=== PATIENT | female | born 1930 | race Caucasian/White ===

== ENCOUNTER 2018-11-15 12:56 | Emergency (ER) | payer MEDICARE ==
[~2018-11-15] VITALS: Ht 160 cm; Wt 104.3 kg
[~2018-11-15 12:56] MED LIST: ASCO1ER; ASPI325EC; ASPI500; ASPI81CH PO; ASPI81EC PO; ATOR10; BETA1; CALGLU500; CEPH500; CEPH500 PO; CHOL10002; CONEST.625; CYCL10 PO; FISH1000 PO; FLAX; FURO40; FURO40 PO; HYDACE5325 PO; HYDCOR1TO TOP; HYDMOR2 PO; Hydrocodone-Ap1 EA23 PO; INDO50 PO; LEVSOD125; LEVSOD25; LEVSOD88 PO; MARIJUANA OIL; MECL25 PO; METO50; METO50 PO; METPRE4DP PO; MULVITMINF; Norco 5-325 Ta1 EACH PO; OXAP600; POTA10T; PROACE100 PO; RXCEPH500 PO; RXHYD5325 PO; RXPROACE PO; Synthroid125 MCG; TOCO400; ULTRA-LIGHT RO1 EACH MC; VIT1CAPS12 PO; VITAMIN C 500500 MG PO; Vitamin C100 M1 PO; WARF10; WARF5 PO; Wheelchair1 EACH MC; XARELTO20 MG PO; [UNRECOGNIZED DRUG - REMARK]
[2018-11-15 14:01] LABS: BASOPHILS ABSOLUTE AUTO 0.05 K/mm3 (0.00-0.23); BASOPHILS PERCENT AUTO 1 % (0-2); EOSINOPHILS ABSOLUTE AUTO 0.22 K/mm3 (0.00-0.68); EOSINOPHILS PERCENT AUTO 3 % (0-6); Hematocrit 39.4 % (33.0-51.0); Hemoglobin 12.3 g/dL (11.5-16.0); IMMATURE GRAN ABSOLUTE AUTO 0.02 K/mm3 (0.00-0.10); IMMATURE GRAN PERCENT AUTO 0 % (0-1); LYMPHOCYTES ABSOLUTE AUTO 1.16 K/mm3 (0.84-5.20); LYMPHOCYTES PERCENT AUTO 17 % (21-46); MONOCYTES ABSOLUTE AUTO 0.85 K/mm3 (0.16-1.47); MONOCYTES PERCENT AUTO 12 % (4-13); Mean Corpuscular HGB Conc 31.2 g/dL (31.5-36.5); Mean Corpuscular Volume 86 fL (80-100); Mean Platelet Volume 10.2 fL (9.1-12.4); NEUTROPHILS ABSOLUTE AUTO 4.66 K/mm3 (1.96-9.15); NEUTROPHILS PERCENT AUTO 67 % (41-73); Platelet Count 161 K/mm3 (150-400); RDW Coefficient Variation 15.8 % (11.7-14.2); RDW Standard Deviation 49.3 fL (35.1-46.3); Red Blood Cell Count 4.56 M/mm3 (3.80-5.20); White Blood Cell Count 6.96 K/mm3 (4.00-11.30)
[2018-11-15 14:17] LABS: International Normalized Ratio 1.57
[2018-11-15 14:18] LABS: Albumin, Blood 3.5 g/dL (3.4-5.0); Albumin/Globulin Ratio 0.9 (0.8-1.8); Bilirubin, Total 0.7 mg/dL (0.1-1.0); Bun/Creatinine Ratio 15.5 (12.0-20.0); Creatinine, Blood 1.03 mg/dL (0.40-1.00); Globulin, Blood 3.7 g/dL (2.2-4.0); Potassium, Blood 4.5 mmol/L (3.5-5.5); Total Protein, Blood 7.2 g/dL (6.4-8.2)
[2018-11-15] MEDS ORDERED: METO50 PO (17:10)
[2018-11-15] MEDS ORDERED: ATOR10 PO (17:10)
[2018-11-15] MEDS ORDERED: FLAX PO (17:11)
[2018-11-15] MEDS ORDERED: LEVSOD125 PO (17:11)
[2018-11-15] MEDS ORDERED: FURO20 (17:12)
[2018-11-15] MEDS ORDERED: K-Dur20 MEQ PO (17:12)
[2018-11-15] MEDS ORDERED: Calcium + Vita1 EACH (17:12)
[2018-11-15] MEDS ORDERED: WARF1 (17:13)
[2018-11-15] MEDS ORDERED: VIT1CAPS12 PO (17:13)
== END 2018-11-15 21:12 | disposition home or self-care (01) ==
LOC: ER 12:56
PROVIDERS: Physician Assistant
DX: R04.2 Hemoptysis (principal); R79.1 Abnormal coagulation profile; I10 Essential (primary) hypertension; M79.89 Other specified soft tissue disorders; Z86.718 Personal history of other venous thrombosis and embolism; Z88.5 Allergy status to narcotic agent; Z88.7 Allergy status to serum and vaccine; Z79.899 Other long term (current) drug therapy; Z79.01 Long term (current) use of anticoagulants
CPT/HCPCS: 36415; 71046; 71260; 80053; 85025; 85379; 85610; 85730; 86850; 86900; 86901; 93005; 93010; 99284-25; Q9967

== ENCOUNTER 2019-05-05 20:09 | Emergency (ER) | payer OTHER ==
[~2019-05-05] VITALS: Ht 160 cm; Wt 81.7 kg
[~2019-05-05 20:09] MED LIST changes: +ATOR10 PO; +Calcium + Vita1 EACH; +FLAX PO; +FURO20; +K-Dur20 MEQ PO; +LEVSOD125 PO; +WARF1
[2019-05-05 20:33] LABS: Source, Urine Catheter
[2019-05-05 20:35] LABS: BASOPHILS ABSOLUTE AUTO 0.05 K/mm3 (0.00-0.23); BASOPHILS PERCENT AUTO 1 % (0-2); EOSINOPHILS ABSOLUTE AUTO 0.16 K/mm3 (0.00-0.68); EOSINOPHILS PERCENT AUTO 2 % (0-6); Hemoglobin 12.8 g/dL (11.5-16.0); IMMATURE GRAN ABSOLUTE AUTO 0.03 K/mm3 (0.00-0.10); IMMATURE GRAN PERCENT AUTO 0 % (0-1); LYMPHOCYTES ABSOLUTE AUTO 1.73 K/mm3 (0.84-5.20); LYMPHOCYTES PERCENT AUTO 18 % (21-46); MONOCYTES ABSOLUTE AUTO 1.29 K/mm3 (0.16-1.47); MONOCYTES PERCENT AUTO 14 % (4-13); Mean Corpuscular HGB 27.4 pg (26.0-34.0); Mean Corpuscular HGB Conc 31.2 g/dL (31.5-36.5); Mean Corpuscular Volume 88 fL (80-100); Mean Platelet Volume 10.3 fL (9.1-12.4); NEUTROPHILS ABSOLUTE AUTO 6.17 K/mm3 (1.96-9.15); NEUTROPHILS PERCENT AUTO 66 % (41-73); Platelet Count 197 K/mm3 (150-400); RDW Coefficient Variation 15.3 % (11.7-14.2); RDW Standard Deviation 49.1 fL (35.1-46.3); Red Blood Cell Count 4.68 M/mm3 (3.80-5.20); White Blood Cell Count 9.43 K/mm3 (4.00-11.30)
[2019-05-05 20:42] LABS: Appearance, Urine Clear (Clear); Bilirubin, Urine Neg (Neg); Blood, Urine 2+ (Neg); Color, Urine Yellow (P-Yellow); Glucose Qualitative, Urine Neg (Neg); Ketones, Urine Neg (Neg); Leukocyte Esterase, Urine Neg (Neg); Nitrite, Urine Neg (Neg); Protein, Urine Neg (Neg); Urobilinogen, Urine NORM (Normal)
[2019-05-05 20:43] LABS: Squamous Epithelial Cells Few /hpf (Few)
[2019-05-05 20:44] LABS: Bacteria Mod /hpf
[2019-05-05 20:57] LABS: Alanine Aminotransfer (ALT/SGP 24 U/L (12-78); Albumin, Blood 3.6 g/dL (3.4-5.0); Alk Phos 94 U/L (50-136); Anion Gap 7 mmol/L (6-16); Aspartate Aminotrans (AST/SGOT 20 U/L (12-37); Bilirubin, Total 0.6 mg/dL (0.1-1.0); Blood Urea Nitrogen 19 mg/dL (8-24); Bun/Creatinine Ratio 16.7 (12.0-20.0); CO2, Blood 28 mmol/L (21-32); CPK Creatine Kinase 27 U/L (26-193); Calcium, Blood 9.3 mg/dL (8.5-10.1); Chloride, Blood 104 mmol/L (98-108); Creatinine, Blood 1.14 mg/dL (0.40-1.00); Globulin, Blood 3.6 g/dL (2.2-4.0); Glomerular Filtration Rate 48 (60-); Glucose, Blood 138 mg/dL (70-99); Magnesium, Blood 1.9 mg/dL (1.6-2.4); Potassium, Blood 3.5 mmol/L (3.5-5.5); Sodium, Blood 139 mmol/L (136-145); Total Protein, Blood 7.2 g/dL (6.4-8.2)
[2019-05-05 21:03] LABS: Creatine Kinase MB <1.0 ng/mL (0.0-3.6); Creatine Kinase MB Index Unable to Calculate (0.0-4.0)
[2019-05-05] MEDS ORDERED: CEPH500 PO (23:31)
== END 2019-05-06 | disposition home or self-care (01) ==
LOC: ER 20:09
PROVIDERS: Emergency Medicine
DX: N39.0 Urinary tract infection, site not specified (principal); I10 Essential (primary) hypertension; Z88.5 Allergy status to narcotic agent; Z88.7 Allergy status to serum and vaccine; Z79.01 Long term (current) use of anticoagulants; Z79.899 Other long term (current) drug therapy; Z87.891 Personal history of nicotine dependence
CPT/HCPCS: 70450; 71045; 80053; 81001; 82550; 82553; 83735; 85025; 87086; 93005; 93010; 96360; 99285-25; A9270-GY; J7030; P9612

== ENCOUNTER 2020-02-17 16:54 | Emergency (ER) | payer OTHER ==
[~2020-02-17] VITALS: Ht 160 cm; Wt 102.1 kg
[~2020-02-17 16:54] MED LIST changes: -ATOR10 PO; +ATOR20 PO; -FURO20; +MELO7.5; +SERT50 PO; -WARF1
[2020-02-17 17:25] LABS: BASOPHILS ABSOLUTE AUTO 0.06 K/mm3 (0.00-0.23); BASOPHILS PERCENT AUTO 1 % (0-2); EOSINOPHILS ABSOLUTE AUTO 0.31 K/mm3 (0.00-0.68); EOSINOPHILS PERCENT AUTO 4 % (0-6); Hematocrit 32.8 % (33.0-51.0); Hemoglobin 9.5 g/dL (11.5-16.0); IMMATURE GRAN ABSOLUTE AUTO 0.02 K/mm3 (0.00-0.10); IMMATURE GRAN PERCENT AUTO 0 % (0-1); LYMPHOCYTES PERCENT AUTO 14 % (21-46); MONOCYTES ABSOLUTE AUTO 1.04 K/mm3 (0.16-1.47); MONOCYTES PERCENT AUTO 13 % (4-13); Mean Corpuscular HGB 20.7 pg (26.0-34.0); Mean Corpuscular Volume 72 fL (80-100); NEUTROPHILS ABSOLUTE AUTO 5.48 K/mm3 (1.96-9.15); NEUTROPHILS PERCENT AUTO 69 % (41-73); Platelet Count 227 K/mm3 (150-400); RDW Coefficient Variation 26.4 % (11.7-14.2); RDW Standard Deviation 66.4 fL (35.1-46.3); Red Blood Cell Count 4.59 M/mm3 (3.80-5.20); White Blood Cell Count 8.01 K/mm3 (4.00-11.30)
[2020-02-17 17:40] LABS: Prothrombin Time Results 20.6 Sec (9.7-11.5)
[2020-02-17 17:48] LABS: Albumin, Blood 3.4 g/dL (3.4-5.0); Albumin/Globulin Ratio 1.1 (0.8-1.8); Bilirubin, Total 0.6 mg/dL (0.1-1.0); Bun/Creatinine Ratio 14.2 (12.0-20.0); Calcium, Blood 9.2 mg/dL (8.5-10.1); Creatinine, Blood 1.48 mg/dL (0.40-1.00); Globulin, Blood 3.2 g/dL (2.2-4.0); Potassium, Blood 3.8 mmol/L (3.5-5.5); Total Protein, Blood 6.6 g/dL (6.4-8.2)
[2020-02-17] MEDS ORDERED: IFEREX (20:48)
[2020-02-17] MEDS ORDERED: DONE5 PO (20:49)
== END 2020-02-17 20:52 | disposition home or self-care (01) ==
LOC: ER 16:54
PROVIDERS: Physician Assistant
DX: S80.12XA Contusion of left lower leg, initial encounter (principal); S80.11XA Contusion of right lower leg, initial encounter; E03.9 Hypothyroidism, unspecified; I10 Essential (primary) hypertension; E78.5 Hyperlipidemia, unspecified; Z79.01 Long term (current) use of anticoagulants; Z88.5 Allergy status to narcotic agent; Z88.7 Allergy status to serum and vaccine; Z95.1 Presence of aortocoronary bypass graft; Z87.891 Personal history of nicotine dependence; Z79.899 Other long term (current) drug therapy; X58.XXXA Exposure to other specified factors, initial encounter
CPT/HCPCS: 36415; 80053; 85025; 85610; 93971; 99284-25

== ENCOUNTER 2020-05-14 10:57 | Emergency (ER) | payer OTHER ==
[~2020-05-14] VITALS: Ht 160 cm; Wt 95.2 kg
[~2020-05-14 10:57] MED LIST changes: +ATOR10 PO; -ATOR20 PO; -Calcium + Vita1 EACH; +Coumadin2 MG PO; +DONE5 PO; +EUTHYROX125 MCG PO; +IFEREX; -LEVSOD125 PO; +Vitamin D1000 UNI1 PO
[2020-05-14 11:32] LABS: BASOPHILS ABSOLUTE AUTO 0.05 K/mm3 (0.00-0.23); BASOPHILS PERCENT AUTO 1 % (0-2); EOSINOPHILS ABSOLUTE AUTO 0.35 K/mm3 (0.00-0.68); EOSINOPHILS PERCENT AUTO 5 % (0-6); Hematocrit 37.3 % (33.0-51.0); Hemoglobin 11.8 g/dL (11.5-16.0); IMMATURE GRAN ABSOLUTE AUTO 0.02 K/mm3 (0.00-0.10); IMMATURE GRAN PERCENT AUTO 0 % (0-1); LYMPHOCYTES PERCENT AUTO 12 % (21-46); MONOCYTES ABSOLUTE AUTO 0.81 K/mm3 (0.16-1.47); MONOCYTES PERCENT AUTO 11 % (4-13); Mean Corpuscular HGB 25.3 pg (26.0-34.0); Mean Corpuscular HGB Conc 31.6 g/dL (31.5-36.5); Mean Corpuscular Volume 80 fL (80-100); Mean Platelet Volume 9.9 fL (9.1-12.4); NEUTROPHILS PERCENT AUTO 71 % (41-73); Platelet Count 165 K/mm3 (150-400); RDW Coefficient Variation 17.1 % (11.7-14.2); RDW Standard Deviation 48.6 fL (35.1-46.3); Red Blood Cell Count 4.67 M/mm3 (3.80-5.20); White Blood Cell Count 7.43 K/mm3 (4.00-11.30)
[2020-05-14 11:50] LABS: Albumin, Blood 3.3 g/dL (3.4-5.0); Bilirubin, Total 0.8 mg/dL (0.1-1.0); Calcium, Blood 9.1 mg/dL (8.5-10.1); Creatinine, Blood 1.14 mg/dL (0.40-1.00); Globulin, Blood 3.3 g/dL (2.2-4.0); Total Protein, Blood 6.6 g/dL (6.4-8.2)
[2020-05-14 12:00] LABS: International Normalized Ratio 1.26; Prothrombin Time Results 13.3 Sec (9.7-11.5)
[2020-05-14] MEDS ORDERED: Aspir 8181 MG PO (13:17)
[2020-05-14] MEDS ORDERED: Potassium Chlo20 ME1 PO (13:21)
[2020-05-14] MEDS ORDERED: ALBU2.5V5 INH (13:28)
[2020-05-14] MEDS ORDERED: PENVK250 PO (13:29)
== END 2020-05-14 15:17 | disposition home or self-care (01) ==
LOC: ER 10:57
PROVIDERS: Physician Assistant
DX: J90 Pleural effusion, not elsewhere classified (principal); E03.9 Hypothyroidism, unspecified; I10 Essential (primary) hypertension; E78.5 Hyperlipidemia, unspecified; Z88.5 Allergy status to narcotic agent; Z88.7 Allergy status to serum and vaccine; Z79.899 Other long term (current) drug therapy; Z87.891 Personal history of nicotine dependence
CPT/HCPCS: 36415; 71046; 71250; 80053; 85025; 85610; 85730; 99284-25

== ENCOUNTER 2020-08-12 09:11 | Inpatient (IN) | payer OTHER, MEDICARE ==
[~2020-08-12] VITALS: Ht 162.6 cm; Wt 92.0 kg
[~2020-08-12 09:11] MED LIST changes: +ALBU2.5V5 INH; +Aspir 8181 MG PO; +PENVK250 PO; +Potassium Chlo20 ME1 PO
[2020-08-12 10:06] LABS: BASOPHILS ABSOLUTE AUTO 0.05 K/mm3 (0.00-0.23); BASOPHILS PERCENT AUTO 0 % (0-2); EOSINOPHILS PERCENT AUTO 0 % (0-6); Hemoglobin 12.9 g/dL (11.5-16.0); IMMATURE GRAN ABSOLUTE AUTO 0.07 K/mm3 (0.00-0.10); IMMATURE GRAN PERCENT AUTO 0 % (0-1); LYMPHOCYTES ABSOLUTE AUTO 0.27 K/mm3 (0.84-5.20); LYMPHOCYTES PERCENT AUTO 2 % (21-46); MONOCYTES ABSOLUTE AUTO 1.27 K/mm3 (0.16-1.47); MONOCYTES PERCENT AUTO 7 % (4-13); Mean Corpuscular HGB 26.5 pg (26.0-34.0); Mean Corpuscular HGB Conc 30.7 g/dL (31.5-36.5); Mean Corpuscular Volume 86 fL (80-100); Mean Platelet Volume 9.6 fL (9.1-12.4); NEUTROPHILS ABSOLUTE AUTO 15.79 K/mm3 (1.96-9.15); NEUTROPHILS PERCENT AUTO 91 % (41-73); NRBC ABSOLUTE 0.02 K/mm3 (0.00-0.02); NRBC Auto 0.1 /100 WBC (0.0-0.2); Platelet Count 241 K/mm3 (150-400); RDW Coefficient Variation 18.9 % (11.7-14.2); RDW Standard Deviation 59.1 fL (35.1-46.3); Red Blood Cell Count 4.87 M/mm3 (3.80-5.20); White Blood Cell Count 17.45 K/mm3 (4.00-11.30)
[2020-08-12 10:38] LABS: Prothrombin Time Results 42.2 Sec (9.7-11.5)
[2020-08-12 10:40] LABS: Alanine Aminotransfer (ALT/SGP 36 U/L (12-78); Albumin, Blood 3.1 g/dL (3.4-5.0); Albumin/Globulin Ratio 0.8 (0.8-1.8); Alk Phos 213 U/L (50-136); Anion Gap 4 mmol/L (6-16); Aspartate Aminotrans (AST/SGOT 35 U/L (12-37); Bilirubin, Total 1.4 mg/dL (0.1-1.0); Blood Urea Nitrogen 30 mg/dL (8-24); Bun/Creatinine Ratio 22.4 (12.0-20.0); CO2, Blood 35 mmol/L (21-32); Calcium, Blood 9.7 mg/dL (8.5-10.1); Chloride, Blood 96 mmol/L (98-108); Creatinine, Blood 1.34 mg/dL (0.40-1.00); Globulin, Blood 4.1 g/dL (2.2-4.0); Glomerular Filtration Rate 40 (60-); Glucose, Blood 167 mg/dL (70-99); Potassium, Blood 4.4 mmol/L (3.5-5.5); Sodium, Blood 135 mmol/L (136-145); Total Protein, Blood 7.2 g/dL (6.4-8.2); Troponin I <0.015 ng/mL (0.000-0.040)
[2020-08-12 10:42] LABS: International Normalized Ratio 4.24
[2020-08-12] MEDS ORDERED: DONEPEZIL HCL10 M1 PO (11:49)
[2020-08-12] MEDS ORDERED: FUROSEMIDE40 MG PO (11:49)
[2020-08-12 12:04] LABS: Appearance, Urine Hazy (Clear); Bilirubin, Urine Neg (Neg); Blood, Urine 5+ (Neg); Color, Urine Yellow (P-Yellow); Glucose Qualitative, Urine Neg (Neg); Ketones, Urine Neg (Neg); Leukocyte Esterase, Urine 1+ (Neg); Nitrite, Urine Neg (Neg); Protein, Urine 3+ (Neg); Urobilinogen, Urine 1+ (Normal)
[2020-08-12 12:28] LABS: Source, Urine Catheter
[2020-08-12 12:30] LABS: Red Blood Cells, Urine TNTC /hpf (0-2)
[2020-08-12 12:35] LABS: Bacteria Mod /hpf
[2020-08-12 12:36] LABS: Amorphous Light (0-Heavy); Squamous Epithelial Cells Mod /hpf (Few); Transitional Epithelial Cells Rare /hpf (0-Rare)
[2020-08-12 12:37] LABS: Calcium Oxalate Crystals Rare /hpf
[2020-08-12] MEDS ORDERED: FERREX 150150 M1 PO ×2 (12:38→13:20)
[2020-08-12] MEDS ORDERED: CENTRUM SILVER1 EAC2 PO (13:21)
[2020-08-12] MEDS ORDERED: DOCU100 PO (13:22)
--- NOTE | 2020-08-12 15:23 | NUR ---
[id number]: RECEIVED PT FROM ER VIA [employer]. PT IS LETHARGIC AND VERY LOWER ELWHA. HER DAUGHTER JACKSON IS POA AND IS ABLE TO ANSWER QUESTIONS FOR HER. PT PRESENTED TO ER WITH CHIEF COMPLAINT OF INCREASING SOB. SHE HAS BEEN WORKED UP RECENTLY FOR HER AORTIC STENOSIS. SHE ALSO HAS A PAST MEDICAL HISTORY OF:CAD WITH CABG X2V, AFIB ON COUMADIN, RIGHT LOWER EXTREMITY THROMBECTOMY, HTN. PT WILL OPEN EYES TO VOICE AND IS DENYING PAIN. SHE IS SPEAKING IN ONE WORD SENTENCES AND IS VERY ORTHOPNEIC AND DYSPNEIC. LUNGS VERY DIMINISHED THROUGH OUT. DEPENDENT EDEMA NOTED FROM NIPPLE LINE DOWN. PT ON BIPAP 16/10 WITH FIO2 60%-MAINTAINS SATS>90%. HOWEVER, RESPIRATION 26-32 AND PT USING ACCESSORY MUSCLES TO BREATH. ECG SHOWS AFIB WITH BBB. SBP 50'S. DR. VALENTE AWARE-NS 500CC BOLUS INITIATED ! 1439. CONSENT OBTAINED FROM PT DAUGHTER JACKSON TO PLACE PICC LINE. DUAL LUMEN PICC PLACED TO RIGHT UPPER ARM-5 CM EXPOSED-PLACEMENT CONFIRMED BY CXR. LEVOPHED DRIP INITIATED @ 1515 @ 5 MCG/MIN-WILL TITRATE TO KEEP MAP 60-65. PT DAUGHTER IS AWARE OF PLAN OF CARE. PT IS DNR/DNI. SHE AGREES WITH CURRENT TREATMENT PLAN. PT DAUGHTER REQUESTS TO RE-EVALUATE IF PT DOES NOT RESPOND TO LEVOPHED/CURRENT TREATMENT-BEFORE TREATMENT IS FURTHER ESCILATED. MANCERA CATH WAS PLACED IN THE ER-SCANT AMOUNT OF DARK, CLOUDY,YELLOW URINE TO BSD.
--- NOTE | 2020-08-12 16:09 | NUR ---
PT RESTING QUIETLY ON BIPAP. OPENED EYES TO VOICE. NODDED "NO" WHEN ASKED IF IN PAIN. MAP 60-65 ON LEVOPHED @ 7 MCG/MIN.
--- NOTE | 2020-08-12 16:58 | NUR ---
TV'S 175-220. DR. VALENTE AWARE. INCREASE BIPAP TO 18/10.
--- NOTE | 2020-08-12 17:22 | NUR ---
TV 200-220'S-BIPAP INCREASED TO 20/[address] VALENTE.
--- NOTE | 2020-08-12 18:04 | NUR ---
PT CONTINUES TO LABOR TO BREATHE.RR 40'S.BIPAP 20/10. PT DAUGHTER AT BEDSIDE. DR. VALENTE UPDATED HER. THE REST OF PT FAMILY MEMBERS ARE ON THEIR WAY TO THE HOSPITAL. WILL DISCUSS POSSIBLE COMFORT CARE AT THAT TIME.
--- NOTE | 2020-08-12 18:49 | NUR ---
PT SURROUNDED BY HER DAUGHTER AND [employer] MEMBERS. PT DAUGHTER STATES THAT SHE WOULD LIKE TO MAKE PT COMFORT CARE AT THIS TIME. DR. AMBROSIO HULL.
--- NOTE | 2020-08-12 20:42 | NUR ---
PATIENT CHANGED FROM DNR STATUS TO COMFORT CARE AT CHANGE OF SHIFT. ORDERS PLACED. 10MG MORPHINE GIVEN WELL ATROPINE DROPS FOR PATIENT COMFORT. FAMILY AT BEDSIDE. BIPAP TURNED OFF WELL LEVOPHED DRIP STOPPED. ANOTHER DOSE OF MORPHINE GIVEN. PATIENT HR SLOWLY DROPPED AND PRONOUNCED AT 2017. [employer] REPAIRER HELPER NOTIFED WELL DR. DOTSON AND DR. VALENTE. PATIENT WAS VERY COMFORTABLE AT THE TIME OF PASSING. FAMILY CONTINUES TO STAY AT BEDSIDE AND PATIENT TO BE SENT TO [facility].
--- NOTE | 2020-08-12 21:29 | NUR ---
JEWELRY TAKEN BY PATIENTS FAMILY
== END 2020-08-12 20:17 | DRG 871 ==
LOC: ER 09:11 → ICUW 12:56 → ICUE 12:56
PROVIDERS: Emergency Medicine; ADMIT Family Medicine
PROC: 5A09357 Assistance with Respiratory Ventilation, Less than 24 Consecutive Hours, Continuous Positive Airway Pressure (ICD-10-PCS; principal; 2020-08-12)
PROC: 3E033XZ Introduction of Vasopressor into Peripheral Vein, Percutaneous Approach (ICD-10-PCS; 2020-08-12)
DX: A41.9 Sepsis, unspecified organism (principal); J96.01 Acute respiratory failure with hypoxia; R65.21 Severe sepsis with septic shock; I50.33 Acute on chronic diastolic (congestive) heart failure; I13.0 Hypertensive heart and chronic kidney disease with heart failure and stage 1 through stage 4 chronic kidney disease, or unspecified chronic kidney disease; Z66 Do not resuscitate; Z51.5 Encounter for palliative care; R04.2 Hemoptysis; R82.81 Pyuria; E03.9 Hypothyroidism, unspecified; N18.30 Chronic kidney disease, stage 3 unspecified; R57.0 Cardiogenic shock; D50.9 Iron deficiency anemia, unspecified; F03.90 Unspecified dementia, unspecified severity, without behavioral disturbance, psychotic disturbance, mood disturbance, and anxiety; F32.9 Major depressive disorder, single episode, unspecified; I25.10 Atherosclerotic heart disease of native coronary artery without angina pectoris; I35.0 Nonrheumatic aortic (valve) stenosis; Z90.49 Acquired absence of other specified parts of digestive tract; Z90.710 Acquired absence of both cervix and uterus; Z98.890 Other specified postprocedural states; Z95.1 Presence of aortocoronary bypass graft; Z88.5 Allergy status to narcotic agent; Z88.7 Allergy status to serum and vaccine; Z79.899 Other long term (current) drug therapy; Z79.82 Long term (current) use of aspirin; Z79.01 Long term (current) use of anticoagulants
CPT/HCPCS: 36415; 36569; 51702; 71045; 76882; 80053; 81001; 83605; 83880; 84145; 84484; 85025; 85610; 86850; 86900; 86901; 87040; 87077; 87086; 87147; 87186; 93005; 93010; 93306; 94660; 96365-59; 96375-59; 99285-25; A9270; C1751; J0456; J0696; J1940; J2270; J7040; J7050; J7060